=== PATIENT | male | born 1975 | race Caucasian/White ===

== ENCOUNTER 2020-01-16 02:04 | Emergency (ER) | payer OTHER ==
[2020-01-16 02:14] VITALS: BP 162/103; PULSE 98; TEMP 98; BMI 40.6
--- NOTE | 2020-01-16 02:43 | PDOC ---
History of Present Illness - General Chief Complaint: Injury Stated Complaint: INJURY Time Seen by Provider: 01/16/20 02:43 History Source: Patient Exam Limitations: No Limitations - History of Present Illness Initial Comments: 01/16/20 02:59 44yM w PMHx morbid obesity, HTN presenting w L lateral wrist pain s/p fall. Pt jumped over truck and landed on L wrist twisted under abdomen trying to evade incoming [place] on [address]. Denies LOC, head trauma, finger numbness. Past History - Medical History Allergies/Adverse Reactions: Allergies Allergy/AdvReac Type Severity Reaction Status Date / Time Penicillins Allergy Verified 01/16/20 02:09 Home Medications: Ambulatory Orders Naproxen [Naprosyn -] 500 mg PO BID #14 tablet 03/13/14 Cancer: Yes (kidney) CVA: Yes COPD: No - Immunization History Immunization Up to Date: Yes - Psycho-Social/Smoking History Smoking History: Never smoked Number of Cigarettes Smoked Daily: 0 Cigars Per Day: 0 - Substance Abuse Hx (Audit-C & DAST Scrn) How often the patient has a drink containing alcohol: Never Score: In Men: 4 or > Positive; In Women: 3 or > Positive: 0 Screen Result (Pos requires Nsg. Audit-10AR): Negative Review of Systems - Review of Systems Constitutional: No: Chills, Fever HEENTM: No: Eye Pain, Nose Congestion Respiratory: No: Cough, Shortness of Breath Cardiac (ROS): No: Chest Pain, Palpitations ABD/GI: No: Constipated, Diarrhea, Nausea, Vomiting : No: Burning, Dysuria Musculoskeletal: No: Back Pain, Joint Pain Integumentary: No: Bruising, Flushing Neurological: No: Headache, Seizure Psychiatric: No: Anxiety, Depression Endocrine: No: Intolerance to Cold, Intolerance to Heat Hematologic/Lymphatic: No: Anemia, Blood Clots *Physical Exam - Vital Signs Last Vital Signs Temp Pulse Resp BP Pulse Ox 98 F 98 H 18 162/103 H 98 01/16/20 02:06 01/16/20 02:06 01/16/20 02:06 01/16/20 02:06 01/16/20 02:06 - Physical Exam General Appearance: Yes: Nourished, Appropriately Dressed, Mild Distress HEENT: positive: EOMI, DEANNE, Normal Voice, Hearing Grossly Normal Respiratory/Chest: positive: Lungs Clear, Normal Breath Sounds. negative: Chest Tender, Respiratory Distress Cardiovascular: positive: Regular Rhythm, Regular Rate, S1, S2. negative: Edema, Murmur Gastrointestinal/Abdominal: positive: Normal Bowel Sounds, Flat, Soft. negative: Tender, Organomegaly Extremity: positive: Other (L hand - tender anatomic snuffbox, lateral carpal bones, mild swelling 1st MCP. No numbness fingers. Full ROM all fingers. Intact thumbs up, finge-5th digit, lumbricals.) Integumentary: positive: Normal Color, Warm, Other (abrasions keith knees). negative: Rash, Ecchymosis, Bruising Neurologic: positive: Fully Oriented, Alert, Normal Mood/Affect, Normal Response, Responsive Medical Decision Making - Medical Decision Making 01/16/20 03:04 L wrist/hand XR - No fx/dislocation --- 44yM w PMHx morbid obesity, HTN presenting w L lateral wrist pain s/p fall. No fx/dislocation on XR. Possible occult scaphoid fx w snuffbox tenderness. Neurovascular intact Given motrin, placed in thumb spica splint DC home w ortho f/u Discharge - Discharge Information Problems reviewed: Yes Clinical Impression/Diagnosis: Wrist pain Qualifiers: Laterality: left Qualified Code(s): M25.532 - Pain in left wrist Condition: Improved Disposition: HOME - Follow up/Referral Referrals: Marcell Lane MD [Primary Care Provider] - Cordell Lyon DO [Staff Physician] - - Patient Discharge Instructions Patient Printed Discharge Instructions: DI for Wrist Pain Additional Instructions: Your x-ray did not show any fracture or dislocation Take tylenol or motrin and apply ice if you have pain. Keep your wrist in the splint Please follow up with orthopedic Dr Lyon in the next few days - Post Discharge Activity Work/Back to School Note: Back to Work
--- NOTE | 2020-01-16 02:54 | PDOC ---
Attending Attestation - Resident Resident Name: Andrae Dobbs - HPI HPI: 01/16/20 04:26 Pt presents to the ED complaining of R wrist and thumb pain after fall on L wrist. Denies other complaints or injuries. 01/16/20 04:27 - Physicial Exam PE: 01/16/20 04:27 Agree with resident exam. Patient is alert and in no acute distress. r wrist and forearm neurovascularly intact. No deformity or tenderness. 01/16/20 04:31 - Medical Decision Making 01/16/20 04:32 Pt presents to the ED complaining of Discharge - Discharge Information Problems reviewed: Yes Clinical Impression/Diagnosis: Wrist pain Qualifiers: Laterality: left Qualified Code(s): M25.532 - Pain in left wrist Condition: Improved Disposition: HOME - Follow up/Referral Referrals: Cordell Lyon DO [Staff Physician] - Marcell Lane MD [Primary Care Provider] - - Patient Discharge Instructions Patient Printed Discharge Instructions: DI for Wrist Pain Additional Instructions: Your x-ray did not show any fracture or dislocation Take tylenol or motrin and apply ice if you have pain. Keep your wrist in the splint Please follow up with orthopedic Dr Lyon in the next few days - Post Discharge Activity Work/Back to School Note: Back to Work
[2020-01-16] MEDS ORDERED: IBUPROFEN 400 MG TABLET (FP) PO ONE ×2 (02:55→02:57)
== END 2020-01-16 04:59 | disposition home or self-care (01) ==
LOC: JER 02:04
DX: M25.532 Pain in left wrist (principal)
CPT/HCPCS: 73110-TC-LT-FY; 73130-TC-LT-FY; 99284-25